=== PATIENT | male | born 1955 | race Caucasian/White ===

== ENCOUNTER → 2020-11-25 | Outpatient (CLI) | payer MEDICARE ==
[~2020-11-25] MED LIST: ASPIRIN 32325 MG/TA1 PO; CAPOTEN; LOPRESSOR 225 MG/TAB PO; PLAVIX 75MG TAB75 MG PO; PRAVASTATIN40 MG PO; ULTRAM ER300 MG PO
== END ==
LOC: RAD 08:51
DX: R91.8 Other nonspecific abnormal finding of lung field (principal); I71.4 Abdominal aortic aneurysm, without rupture; K82.8 Other specified diseases of gallbladder; E27.9 Disorder of adrenal gland, unspecified; R05 Cough
CPT/HCPCS: Q9967

== ENCOUNTER → 2020-12-01 | Outpatient (CLI) | payer MEDICARE | LOC: RAD 08:58 | DX: R10.9 Unspecified abdominal pain (principal) ==

== ENCOUNTER → 2022-02-10 | Outpatient (CLI) | payer MEDICARE | LOC: RAD 07:18 | DX: K80.20 Calculus of gallbladder without cholecystitis without obstruction (principal) ==

== ENCOUNTER → 2023-12-06 | Outpatient (CLI) | payer MEDICARE | LOC: RAD 08:56 | DX: I71.43 Infrarenal abdominal aortic aneurysm, without rupture (principal) ==